=== PATIENT | female | born 1965 ===

== ENCOUNTER → 2017-03-15 | Outpatient (REF) ==
--- NOTE | 2017-03-15 17:43 | REP ---
Right shoulder series: Three views. History: Degenerative disc disease. Findings: The right glenohumeral and acromioclavicular joints are normally aligned. There is a large dystrophic soft-tissue calcification superior to the greater tuberosity region of the proximal humerus consistent with calcific tendonitis or bursitis. There is mild degenerative narrowing of the AC joint. Periarticular soft tissue calcification is also seen adjacent to the acromion process. Impression: Calcific tendino-bursitis changes. Signed by Braydon Shine MD 03/16/2017 02:10 P
--- NOTE | 2017-03-15 17:43 | REP ---
Lumbar spine series: Three views. History: Degenerative disc disease. Findings: Lumbar vertebral body heights are preserved. Alignment is normal. There is degenerative disc disease with vacuum phenomenon and narrowing at the L5-S1 level. Mild disc space narrowing is seen at L4-5 and early discogenic spurring is seen at L2-3. Pedicles and posterior elements are intact. There is osteoarthritic facet hypertrophy, moderate in degree at L4-5 and mild at L3-4 and L5-S1 bilaterally. Sacrum and SI joints are intact. No bony destructive lesion is seen. Visualized bowel gas pattern is normal. Impression: Degenerative spondylosis changes. Moderate osteoarthritic facet hypertrophy and sclerosis at L4-5 bilaterally and to a lesser extent at the left L3-4 and L5-S1. Signed by Braydon Shine MD 03/16/2017 02:10 P
== END ==
LOC: M SMT 15:15
PROVIDERS: ATTEND Internal Medicine
DX: M54.5 Low back pain (principal)